=== PATIENT | female | born 1940 | race Caucasian/White ===

== ENCOUNTER 2016-06-27 05:34 | Day surgery (SDC) | payer MEDICARE, OTHER ==
[2016-06-27] VITALS (10 sets, daily range): BP systolic 99–148; BP diastolic 54–70; PULSE 56–66; RESP 11–18; O2SAT 94–100
[~2016-06-27] VITALS: Ht 157.5 cm; Wt 61.0 kg
[~2016-06-27 05:34] MED LIST: CHOL200047 PO; CYAN500 PO; FLUO20CA25 PO; HYDR-4003 PO; Lactated Ringer's 1,000 ML IV ONE; OFLO5DRO9 OT; OSPE60TA2 PO; SULF1TAB35 PO
[2016-06-27] MEDS ORDERED: Ondansetron 2 mg/mL 2 mL Inj ONE (05:35)
[2016-06-27] MEDS ORDERED: Propofol 10,000 mCg/mL 20 mL Inj ONE (05:35)
[2016-06-27] MEDS ORDERED: Dexamethasone 4 mg/mL Inj ONE (05:35)
[2016-06-27] MEDS ORDERED: fentaNYL-PF 50 mCg/mL 2 mL Inj ONE (05:35)
[2016-06-27] MEDS ORDERED: CeFAZolin Inj 2 GM in IV Premix 1 EACH IV ONE (06:00)
[2016-06-27] MEDS ORDERED: Acetaminophen IV 1,000 MG in IV Premix 1 EACH IV ONE (06:00)
[2016-06-27] MEDS ORDERED: Bupivacaine Liposome 1.3% 20 mL Inj INFILTRATE SCH (06:00)
[2016-06-27] MEDS ORDERED: Lactated Ringer's 1,000 ML IV SCH (07:18)
[2016-06-27] MEDS ORDERED: Lactated Ringer's 500 ML IV PRN (07:18)
--- NOTE | 2016-06-27 07:18 | PCM.HPANE ---
Patient Data Date of Service: Jun 27, 2016 Surgeon Admitting Provider: Attending Provider:Tyler Mcnamara MD Primary Care Physician:Diego Other Provider:Rolando Martins Anesthesia Reason for Visit Cystocele, Rectocele CYSTOCELE, RECTOCELE Ht/WT & BMI Height (Feet): 5 Height (Inches): 2 Weight (Kilograms): 58.2 Body Mass Index 23.00 Allergies Coded Allergies: amitriptyline (Verified Allergy, Unknown, UNKNOWN, 12/25/14) aspirin (Verified Allergy, Unknown, UNKNOWN (TARTRAZINE ONLY), ) Past Anesthesia History Anesthesia History: Denies:: Abnormal Airway, Anesthesia Reactions, Difficult Intubation, Fam Anesthesia Reaction, Fam Malignant Hypertherm, Malignant Hyperthermia Diabetes History Hx Diabetes?: No MRSA MRSA: No Medications Home Meds Incl Beta Lawson: No Reported Medications Sulfamethoxazole/Trimeth 800-160 mg (Bactrim DS 800-160 mg)1 Each Tablet1 Tablet PO DAILY Ref 0 06/23/16 Ospemifene (Osphena)60 Mg [id number] Mg PO DAILY 06/23/16 Ofloxacin 5 Ml Drops5 Ml OT PRN eye irritation 0.3% 06/23/16 Hydrocodone-Acetaminophen 5-325 mg 1 Each Tablet1 Tablet PO Q4H PRN For Pain Ref 0 06/23/16 Fluoxetine 20 Mg [id number] Mg PO DAILY Ref 0 06/23/16 Cyanocobalamin (Vitamin B12)500 Mcg Tablet1,000 Mcg PO DAILY 06/23/16 Cholecalciferol (Vitamin D3) (Vitamin D3)2,000 Unit Capsule2,000 Unit PO DAILY 06/23/16 Discontinued Reported Medications Hydrocodone-Acetaminophen 5-325 mg 1 Each Tablet1 Tablet PO Q4H PRN For Pain Ref 0 12/25/14 Fluoxetine 20 Mg [id number] Mg PO DAILY Ref 0 12/24/14 Cholecalciferol (Vitamin D3) (Vitamin D)1,000 Unit Tablet2,000 Unit PO DAILY #1 BOTTLE Ref 0 12/24/14 Ubidecarenone (Coenzyme Q10)100 Mg [id number] Mg PO DAILY 12/24/14 Cyanocobalamin (Vitamin B-12) (Vitamin B-12)1,000 Mcg Tablet1,000 Mcg PO DAILY 12/24/14 Ofloxacin 5 Ml Drops5 Ml OCULAR UD 0.3% 12/24/14 History History of ENT Problems?: Yes HEENT History: Positive for:: Cataracts (bilateral ) TMJ (occasionally- no nightguard) Denies:: Abnormal Airway Difficult Intubation Dysphagia Glaucoma Hearing Problem Sinus Problem Hx of Heart Problems?: Yes Cardiovascular History: Positive for:: Heart Murmur (since childhood,) Denies:: AICD Abdominal Aortic Aneurism Atrial Fibrillation Cardiac Surgery Chest Pain (cardiac workup negative) Congestive Heart Failure Edema Hypertension Irregular Heartbeat Pacemaker Rheumatic Fever Thrombophlebitis Valvular Heart Disease Hx of Respiratory Problem?: No Respiratory History: Denies:: Asthma COPD Chest Surgery Cough Dyspnea Emphysema Hemoptysis Oxygen Administration Pneumonia Pulmonary Embolism Tuberculosis Use of C-PAP Machine Hx Neurologic Problems?: No Neurological History: Denies:: Alzheimer's Disease CVA Dementia Dizziness Headaches Multiple Sclerosis Parkinson's Disease Seizures Hx of GI Problems?: Yes Gastrointestinal History: Positive for:: Gall Bladder Disease (pedro pablo) Gastroesphageal Reflux (occasional) Denies:: Diverticulitis Heartburn Hepatitis Hiatal Hernia Liver Disease Rectal Bleeding Hx of Problems?: Yes Genitourinary History: Positive for:: Kidney Stones (hx of ESWL) Urinary Tract Infection (hx of- currently taking abx) Female Hx: Denies:: Currently Endometriosis Pelvic Inflammatory Problems with Breasts? Skin History: Denies:: History Skin Disorders? Pressure Ulcers Hx Musculoskeletal Problems?: Yes Musculoskeletal History: Positive for:: Fibromyalgia Joint Replacement (bilateral TKA, thumb replacement) Osteoarthritis Denies:: Back Injury Hx of Psycho/Social Problems?: Yes Psycho Social History: Positive for:: Hx Depression Hx Surgeries?: Yes (bladder sling, pedro pablo, bilateral knee, eswl, colon resection ) Hx Any Other Health Problems?: Yes Other History: Denies:: Cancer Endocrine Disease Hospitalization Thyroid Disease History Blood Transfusions: Positive for:: Blood Transfusions Denies:: Blood Transfuse Reaction Hx Diabetes: No Hx Alcohol Use: NoHx Substance Use: No Smoking Status: Former Smoker Have You Smoked inLast 12 mo: No Stop/Bang S-Snoring: Do You Snore Loudly: No T-Tired: feel tired, fatigued: No O-Obsered: Observed not breath: No P-Blood Pressure: treated: No B- Body Mass Index > 35 kg/m2: No A- Age over 50: Yes N- Neck Large Circumference: No G- Gender Male: No TOBY Total Score: 1 TOBY Risk Assessment: Low Risk, <3 Yes Risk Assessment Category Category 1A: Patient has history of documented sleep apnea, and HAS NOT received any narcotic, sedative or anesthesia administration during this stay. Category 1B: Patient has history of documented sleep apnea, and HAS received any narcotic , sedative or anesthesia administration during this stay Category 2: Patient has SUSPECTED Obstructive Sleep Apnea, and HAS received any narcotic , sedative or anesthesia administration during this stay. Category 3: Patient has SUSPECTED Obstructive Sleep Apnea and HAS NOT received narcotic, sedative or anesthesia administration during this stay. Category 4: Outpatient in Procedural Areas with known sleep apnea or who screen positive for High Risk via the STOP/BANG questionnaire. Exam Exam Vital Signs Vital Signs Date Time Temp Pulse Resp B/P Pulse Ox O2 Delivery O2 Flow Rate FiO2 06/27/16 05:59 36.5 65 16 127/60 96 Room Air General Appearance: Alert, Oriented X3, Cooperative, No Acute Distress HEENT/AIRWAY: MP 2 Lungs: Normal Air Movement Heart: Exam Unremarkable Meds/Labs/Diagnostics Admission Meds Current Medications Lactated Ringer's (Lr) 1,000 ml @ 120 mls/hr Q8H20M ONCE IV Last administered on 06/27/16t 05:42; Start 06/27/16 at 05:00; Stop 06/27/16 at 13:19 Plan Impression Patient chart reviewed, patient interviewed and anesthestic plan with risks, benefits, and alternatives discussed, and informed consent obtained. NPO Status: 06/26 ASA Physical Status: ASA2 Mod Systemic Disease Anesthetic Plan: GA Bene/Risks/Altern/Consents: Yes HP Complete Prior to Induction: Yes Garry Adams MD Jun 27, 2016 07:05
[2016-06-27] MEDS ORDERED: Atropine 0.4 mg/mL Inj IVPUSH PRN (07:20)
[2016-06-27] MEDS ORDERED: MetoCLOpramide 5 mg/mL 2 mL Inj IVPUSH PRN (07:20)
[2016-06-27] MEDS ORDERED: hydrALAZINE 20 mg/mL Inj IVPUSH PRN (07:20)
[2016-06-27] MEDS ORDERED: Dexamethasone 4 mg/mL Inj IVPUSH PRN (07:20)
[2016-06-27] MEDS ORDERED: HYDROmorphone 1 mg/mL Inj IVPUSH PRN ×2 (07:20→10:10)
[2016-06-27] MEDS ORDERED: fentaNYL-PF 50 mCg/mL 2 mL Inj IVPUSH PRN (07:20)
[2016-06-27] MEDS ORDERED: Labetalol 5 mg/mL 4 mL Inj IV PRN (07:20)
[2016-06-27] MEDS ORDERED: EPHEDrine Sulfate 50 mg/mL Inj IVPUSH PRN (07:20)
[2016-06-27] MEDS ORDERED: Ondansetron 2 mg/mL 2 mL Inj IVPUSH PRN (07:20)
[2016-06-27] MEDS ORDERED: Phenylephrine 10,000 mCg/mL Inj IVPUSH PRN (07:20)
[2016-06-27] MEDS ORDERED: Bupivacaine 0.5%/EPI 50 mL Inj INFILTRATE ONE (08:00)
[2016-06-27] MEDS ORDERED: Estrogens Conjugated 30 Gm Vaginal Cream VAGINAL ONE (09:05)
[2016-06-27] MEDS ORDERED: Belladonna Alk-Opium 60 mg Rectal Suppository RECTAL ONE (09:11)
[2016-06-27] MEDS ORDERED: Gentamicin 40 mg/mL 2 mL Inj IRRIGATION ONE (09:15)
[2016-06-27] MEDS ORDERED: Polyethylene Glycol (PEG) 17 Gm Powder PO PRN (10:10)
[2016-06-27] MEDS: Acetaminophen IV 1,000 MG in IV Premix 1 EACH IV SCH ×3 (10:10→22:28)
[2016-06-27 11:00] LABS: APPEARANCE,URINE CLEAR (CLEAR,HAZY); COLOR,URINE YELLOW (YELLOW); OCCULT BLOOD,URINE LARGE (NEGATIVE); UROBILINOGEN,URINE NORMAL (NORMAL)
--- NOTE | 2016-06-27 11:00 | PCM.ANEP1 ---
Post Anesthesia Phase 1 PACU Phase 1 Assessment Date of Service: Jun 27, 2016 Vital Signs Vital Signs Date Time Temp Pulse Resp B/P Pulse Ox O2 Delivery O2 Flow Rate FiO2 06/27/16 10:45 36.7 56 15 126/63 94 Nasal Cannula 2 06/27/16 10:30 61 11 136/54 95 Nasal Cannula 2 06/27/16 10:25 65 14 129/64 95 Nasal Cannula 2 06/27/16 10:20 65 12 119/58 95 Nasal Cannula 2 06/27/16 10:16 37.4 66 14 118/64 95 Nasal Cannula 2 06/27/16 05:59 36.5 65 16 127/60 96 Room Air Anesthetic Administered: GA Level of Alertness: Drowsy, not talking Pain: No Nausea or Vomiting: No Oxygen Delivery: Nasal Cannula Lungs: Normal Air Movement Garry Adams MD Jun 27, 2016 11:00
[2016-06-27] MEDS: Lactated Ringer's 1,000 ML IV SCH ×2 (11:35→19:47)
--- NOTE | 2016-06-27 11:36 | NUR ---
Post op Pt arrived on [facility] at 1115, able to scoot from gurney to bed without assistance, no drainage on frankie-pad, Henriquez draining clear yellow urine. no complaints of pain or nausea at this time.
--- NOTE | 2016-06-27 11:41 | PCM.ANEP2 ---
Post Anesthesia Evaluation ASA/CMS Post Anesthesia Date of Service: Jun 27, 2016 VS in Patient's Normal Range?: Yes Resp Stable; Airway Patent?: Yes CV Function & Hydration Stable: Yes Mental Status Recovered?: Yes Pain control Satisfactory?: Yes N/V Control Satisfactory?: Yes Garry Adams MD Jun 27, 2016 11:41
[2016-06-27] MEDS ORDERED: HYDROcodone-APAP 5-325 mg Tablet PO PRN (11:50)
[2016-06-27] MEDS: Trimethoprim-Sulfa 160 mg-800 mg Tablet PO SCH (13:55)
[2016-06-28 00:39] VITALS: BP 92/54; PULSE 59; RESP 20; O2SAT 97
[2016-06-28] MEDS: Lactated Ringer's 1,000 ML IV SCH ×2 (04:01→10:10)
[2016-06-28] MEDS: Acetaminophen IV 1,000 MG in IV Premix 1 EACH IV SCH ×2 (04:45→10:10)
--- NOTE | 2016-06-28 06:01 | NUR ---
Henriquez/Vag packing Vaginal packing taken out at 0510 without issues. Henriquez dc'd after vag packing, urine completely clear. Pt tolerated well and is now wearing mesh underwear with pad, light serosanguineous drainage. Pt given IV Tylenol q6 hrs overnight. Pt reporting pain has decreased since taking out packing, rating pain 1-2/10. Pt instructed to use call light to let us know when she has to urinate.
[2016-06-28 06:16] VITALS: BP 93/56; PULSE 64; RESP 20; O2SAT 96
[2016-06-28] MEDS: Trimethoprim-Sulfa 160 mg-800 mg Tablet PO SCH (08:25)
[2016-06-28] MEDS ORDERED: [UNRECOGNIZED DRUG - OTHER] PO SCH (08:30)
[2016-06-28 10:28] VITALS: BP 118/65; PULSE 62; RESP 16; O2SAT 94
--- NOTE | 2016-06-28 10:41 | NUR ---
Social Work- Initial Assessment Data: See Initial Assessment. Pt is a 76 year old female admitted for cystocele per H&P. Pt's insurance is Medicare and [employer] Supplement. PCP is Deandre Ragland MD. SW met with patient at bedside to discuss discharge plan, SW role explained. Pt alert and oriented x3. Pt resides in [place] with her Jitendra [phone] where she remains independent with her ADLs. Pt uses no DME and drives. Pt has not HH or SNF history. Pt has no LTC benefits or VA benefits. SW explained DPOA and pt states that this is completed. SW encouraged pt to bring copy to the hospital. SW provided plan and phone number on whiteboard. Pt to discharge home with to transport via POV. No anticipated discharge needs. SW will continue to follow as needs arise. Assessment: [place]. Plan: Pt to discharge home with to transport via POV. No anticipated discharge needs. SW will continue to follow if needs arise. Анна Daniels MSW Addendum: 06/28/16 at 1045 by CHIQUITA DANIELS SS Amended: Links added.
--- NOTE | 2016-06-28 12:25 | NUR ---
post void patient voided, bladder scanned 15 min post void 76 ml
--- NOTE | 2016-06-28 13:00 | NUR ---
Discharge Pt left with family in stable condition with all belongings at 1245, IV d/c'd, prescription given, teaching done on S/S to watch out for, instructions given for scheduling follow up appointment. Post void residual was 76mls
--- NOTE | 2016-08-25 21:49 | OP ---
[address] [address] OPERATIVE REPORT PATIENT: PHIL DANG : 1940 MR#: [id number] ADMIT: 06/27/2016 JOB ID: [id number] DATE OF SURGERY: 06/27/2016 SURGEON: Tyler Mcnamara MD PREOPERATIVE DIAGNOSIS(ES): 1. Cystocele. 2. Rectocele. POSTOPERATIVE DIAGNOSIS(ES): 1. Cystocele. 2. Rectocele. PROCEDURES PERFORMED: Anterior and posterior repair. ICER AIR CONDITIONING: JAD Aponte. ANESTHESIA: General plus 1.33% Exparel. FINDINGS: There was a presence of a grade 3-4 cystocele and a grade 2+ rectocele. Alfonzo grafts were utilized to augment the repair anteriorly and posteriorly. PROCEDURE SUMMARY: The patient was positioned supine and was administered general anesthesia. She was then repositioned in semi lithotomy and the lower abdomen, genitalia, groin, and vaginal vault were prepped and draped in sterile fashion. A 16-Austrian Henriquez catheter was inserted and placed to gravity drainage. Next, 0.5% plain Marcaine with epinephrine was used to infiltrate the subcutaneous plane of the anterior vaginal wall in the midline. The full midline incision was then made. The appropriate plane was developed and extended laterally, proximally and distally from each of the epithelial incision margins. Next, the index finger was utilized to bluntly dissect and identify the ischial tuberosity on each side. Two individual small Alfonzo grafts were then utilized by attaching the corner of each to the sacroiliac ligament on either side with 0 Prolene. The grafts were then gently angled medially and distally and they overlapped across the midline. Further additional interrupted sutures were placed at the point of overlap and along the lateral margins and then finally distally. Access and redundant graft was excised and discarded. The redundant vaginal epithelium was excised and discarded. The midline was then repaired with a running intermittently locking 2-0 Monocryl. Hemostasis was excellent. Next, the same steps and maneuvers were performed to divide the midline posterior vaginal wall, again developed the appropriate avascular plane and extended proximally and laterally and distally. A single small Alfonzo graft was then selected and this was positioned and trimmed where needed and secured proximally, laterally and distally with interrupted 0 prolene. The excess vaginal mucosa was then excised and discarded and the midline was then repaired. A vaginal pack using tape impregnated with Premarin cream was then utilized and the vaginal vault was gently but firmly packed. The Henriquez was left to gravity drainage. The patient was then repositioned supine, and was transferred to a gurney, and transferred to Recovery, awake in stable condition.
== END 2016-06-28 12:40 | disposition home or self-care (01) ==
LOC: SAS 05:34 → OSC 11:16 → UNDOADMIN 11:16 → SAS 06-28 12:40
PROVIDERS: ATTEND Specialist
DX: N81.10 Cystocele, unspecified (principal); N81.6 Rectocele; N95.2 Postmenopausal atrophic vaginitis; F32.9 Major depressive disorder, single episode, unspecified; K57.30 Diverticulosis of large intestine without perforation or abscess without bleeding; M79.7 Fibromyalgia; K21.9 Gastro-esophageal reflux disease without esophagitis; M19.90 Unspecified osteoarthritis, unspecified site; E03.9 Hypothyroidism, unspecified; Z87.442 Personal history of urinary calculi; Z87.440 Personal history of urinary (tract) infections; Z87.891 Personal history of nicotine dependence; Z96.653 Presence of artificial knee joint, bilateral
CPT/HCPCS: 36415; 57260; 57267; 80048; 81000; 87086; C1763; J0131; J0690; J1100; J1580; J1650; J2405; J3010; J7120